=== PATIENT | female | born 1945 ===

== ENCOUNTER 2023-04-01 09:24 | Outpatient (AMB) | payer OTHER, SELFPAY ==
--- NOTE | 2023-04-01 11:41 | AM.OFFWIN_ITS ---
Intake Vital Signs 04/01/23 11:51 Height 5 ft 2 in Weight 109 lb BMI 19.9 BP 146/80 H Blood Pressure Location Lt brachial Position Sitting Pulse 88 Pulse Source Pulse Oximeter Temp 97.9 F Temp Source Oral Pulse Oximetry (%) 97 Oxygen Delivery Method Room Air Intake Visit Reasons: [employer]/ [phone]/ sore throat Intake Note: Pt is here today c/o sore throat x2days Allergies No Known Allergies Allergy (Verified 04/01/23 11:42) HPI HPI Comments History of Present Illness Details This is a 77-year-old female with a past medical history of arthritis presenting for evaluation of a sore throat that she has had for the past 1 day. Patient states that her had similar symptoms over 1 week ago. Patient denies having any fevers, chills, ear pain, difficulty swallowing, cough or shortness of breath. Patient has been using salt water gargles and ibuprofen only. Review of Systems Const All systems reviewed & are unremarkable except as noted in HPI and below Eyes Reports no additional complaints ENT Reports no additional complaints, Denies otalgia and Reports sore throat Card Denies dyspnea Resp Reports no additional complaints, Denies cough and Denies dyspnea Neuro Reports no additional complaints Endo Reports no additional complaints Physical Exam Vital Signs: Last Vital Signs Temp 97.9 F 04/01/23 11:51 Pulse 88 04/01/23 11:51 BP 146/80 H 04/01/23 11:51 Pulse Ox 97 04/01/23 11:51 Oxygen Delivery Method Room Air 04/01/23 11:51 BMI result Body Mass Index 19.9 Const General: cooperative, healthy appearing, comfortable and no acute distress; No ill appearing Nutritional Appearance: average body habitus Orientation/consciousness: patient oriented x3 Limitations: no limitations HEENT Head: Yes normal to inspection Ears: hearing grossly normal bilaterally, external ears normal, TM's normal bilaterally and EAC's normal General nose exam: Normal external nose present Face and sinus: Yes normal facial exam and Yes sinuses nontender Mouth: Normal oral and palatal mucosa present Teeth and gingiva: dentition normal Throat: Yes posterior oropharynx normal (There is no edema, erythema or exudates of the posterior oropharynx) and Yes postnasal drainage Eyes Eyelids: Yes eyelids normal Conjunctivae: conjunctivae normal Sclerae: sclerae normal Corneas: corneas normal Pupils: Equal, round and reactive pupils present EOM: EOMs intact bilaterally Neck Lymphatic: no lymphadenopathy noted Resp Effort & Inspection: normal respiratory effort, able to speak in complete sentences, no cough, no respiratory distress and not tachypneic Auscultation: clear to auscultation bilaterally Cardio Rate: regular rate Rhythm: regular rhythm Skin General skin exam: no rashes or lesions noted Neuro General: patient oriented x3 Cranial nerves: Yes Equal, round and reactive pupils present Psych Appearance: grossly normal Mental Status: mental status grossly normal Insight: Good insight present (Psych) Judgement: Good judgement present (Psych) Results AMB Rapid Strep AMB Rapid Strep Negative Last Edit by Ester Ricks CMA on 04/01/23 12:05 Results Reviewed Results Reviewed: Laboratory Last Values Strep Scn [facility] Negative 04/01/23 11:58 Reviewed with patient. Assessment & Plan Assessment & Plan (1) Acute pharyngitis: Code(s): J02.9 - Acute pharyngitis, unspecified Plan: Rapid strep is negative and there is no clinical evidence of a bacterial pharyngitis. Patient will continue to use salt water gargles and ibuprofen as needed for her discomfort. Antibiotic therapy is not warranted at this time. Orders: Orders AMB Rapid Strep Screen Today Z13.9 - Encounter for screening, unspecified Coding Level of Care Code New Pt Level 3 (81896) Diagnoses Acute pharyngitis J02.9 Time Spent (min) 20
[2023-04-01 11:51] VITALS: BP 146/80; PULSE 88; TEMP 36.6; O2SAT 97; BMI 19.9
== END 2023-04-01 12:35 | disposition home or self-care (01) ==
PROVIDERS: Visit Provider Physician Assistant
DX: J02.9 Acute pharyngitis, unspecified (principal)
CPT/HCPCS: 87880; 99051; 99203